=== PATIENT | female | born 1980 | race Caucasian/White ===

== ENCOUNTER 2024-08-14 09:04 | Emergency (ER) | payer MEDICAID ==
[~2024-08-14] VITALS: Ht 157.5 cm; Wt 77.1 kg
[2024-08-14 11:00] VITALS: TEMP 98.5
[2024-08-14] MEDS ORDERED: IBUP-1955 PO (12:19)
[2024-08-14] MEDS ORDERED: CYCL10TA9 PO (12:19)
[2024-08-14 12:25] VITALS: BP 130/76; O2SAT 99
== END 2024-08-14 12:25 | disposition home or self-care (01) ==
LOC: ER 09:21
DX: M25.511 Pain in right shoulder (principal); Z86.718 Personal history of other venous thrombosis and embolism; Z88.0 Allergy status to penicillin; Z90.710 Acquired absence of both cervix and uterus
CPT/HCPCS: 73030-TC; 93971-TC